=== PATIENT | female | born 1970 | race Two or more races ===

== ENCOUNTER 2022-10-22 13:00 | Outpatient (REF) | payer OTHER, SELFPAY ==
--- NOTE | 2022-10-22 13:10 | EEG_ITS ---
PROCEDURE: 24-hour ambulatory EEG. FINDINGS: The waking background activity consists of a well-defined low to moderate voltage 10 to 11 hertz posterior alpha frequency intermixed with low-voltage fast frequencies anteriorly. Drowsiness is characterized by diffuse theta slowing. During sleep, symmetrical frontal central sleep spindles and vertex sharp transients develop over both hemispheres. Arousals are frequent and unremarkable. No focal, lateralizing, or paroxysmal discharges are seen. Patient remains asymptomatic. IMPRESSION: Normal 24-hour ambulatory EEG. MD JERRY Pereyra/MARTY / [id number]
== END 2022-10-22 13:01 | disposition home or self-care (01) ==
LOC: HO.NEURO 13:00
PROVIDERS: PCP Internal Medicine; Visit Provider Psychiatry & Neurology Neurology
DX: R55 Syncope and collapse (principal)
CPT/HCPCS: 95708

== ENCOUNTER → 2022-10-23 13:04 | Outpatient (REF) | payer OTHER, SELFPAY ==
--- NOTE | 2022-10-23 13:10 | HM_ITS ---
* Total monitoring time about 2 days and 23 minutes. * Underlying rhythm is sinus. Average ventricular rate 86/Min. Range 57 to 152/Min. Sinus tachycardia noted 17% of the time. * Very rare supraventricular ectopy with minimal burden. * No evidence of atrial fibrillation or flutter. * No significant pauses or AV blocks. * No patient markers or events in diary. MTDD
== END ==
LOC: HO.CARD 13:04
PROVIDERS: PCP Internal Medicine; Visit Provider Psychiatry & Neurology Neurology
DX: R55 Syncope and collapse (principal)
CPT/HCPCS: 93225